=== PATIENT | female | born 1980 | race Caucasian/White ===

== ENCOUNTER 2019-10-02 13:08 | Outpatient (CLI) | payer MEDICARE, MEDICAID, SELFPAY ==
[2019-10-02 13:37] LABS: Blood Urea Nitrogen 6 mg/dL (7-17); Calcium 8.8 mg/dL (8.4-10.2); Carbon Dioxide 28 mmol/L (22-30); Chloride 101 mmol/L (98-107); Estimated Glomerular Filt Rate > 60; Glucose 130 mg/dL (65-105); Potassium 3.7 mmol/L (3.4-5.0); Sodium 137 mmol/L (137-145)
== END 2019-10-02 13:09 | disposition home or self-care (01) ==
PROVIDERS: Anesthesiology; PCP Family Medicine; Visit Provider Obstetrics & Gynecology
DX: E11.9 Type 2 diabetes mellitus without complications (principal); O02.1 Missed abortion
CPT/HCPCS: 36415; 80048; 86900; 86901

== ENCOUNTER 2019-10-05 00:47 | Day surgery (SDC) | payer MEDICARE, MEDICAID, SELFPAY ==
[2019-09-30 17:42] VITALS: BMI 37.1
[2019-10-05] VITALS (13 sets, daily range): BP systolic 100–142; BP diastolic 35–86; PULSE 58–100; RESP 10–20; TEMP 36.1–37.3; O2SAT 97–100
--- NOTE | ~2019-10-05 | US_ITS ---
US guidance surgery Clinical information: D&C procedure. TECHNIQUE: Ultrasound guidance used during D&C procedure performed by [Zana Lema MD]. FINDINGS: Correlate with procedure note. IMPRESSION: Ultrasound used during D&C procedure. Please refer to procedural report for details. Reviewed, dictated and finalized at location A. IMPRESSION: Ultrasound used during D&C procedure. Please refer to procedural re port for details.
--- NOTE | 2019-10-05 06:07 | ECG_ITS ---
Measurements Intervals [place] Rate: 70 P: 40 [place]: 148 QRS: 6 QRSD: 89 T: 28 QT: 387 QTc: 418 Interpretive Statements SINUS RHYTHM NORMAL ECG Electronically Signed On 10-05-2019 7:08:46 CDT by Steve Keith D.O.
--- NOTE | 2019-10-05 07:11 | WPDANESEPPF ---
Anes - Initial Pre Proc Eval Procedure: Operation Date: 10/05/19 07:30 Proposed Procedures p Suction Dilatation and Curettage - Zana Lema MD Date/Time: 10/05/19 07:11 Surgeon: Zana Lema MD Pre Op Diagnosis: missed AB Patient Data Age: 39 Gender: F Height: 5 ft 8 in Weight: 110.9 kg Allergies Allergy/AdvReac Type Severity Reaction Status Date / Time Penicillins Allergy Severe Swelling Verified 09/30/19 17:26 of Lip/Tongue/Throat COCONUT Allergy Severe THROAT Uncoded 09/30/19 17:26 SWELLING Home Medications Medication Instructions Recorded Confirmed Type doxycycline hyclate 100 mg PO DAILY 09/30/19 09/30/19 History duloxetine 60 mg PO DAILY 09/30/19 09/30/19 History fentanyl See Rx Instructions .ROUTE .COMPLEX 09/30/19 09/30/19 History glimepiride 2 mg PO DAILY 09/30/19 09/30/19 History hydrocodone-acetaminophen 1 tablet PO QID 09/30/19 09/30/19 History liraglutide [Victoza 2-Sam] 18 mg SUBCUT 09/30/19 History lisinopril 10 mg PO DAILY 09/30/19 09/30/19 History metformin 1,000 mg PO BID 09/30/19 09/30/19 History pregabalin [Lyrica] 100 mg PO TID 09/30/19 09/30/19 History simvastatin 10 mg PO DAILY 09/30/19 09/30/19 History sitagliptin [Januvia] 100 mg PO DAILY 09/30/19 09/30/19 History trazodone 2 mg PO HS 09/30/19 09/30/19 History Patient hx anesthesia problems: none Family hx anesthesia problems: none PMFSH Past Medical History Medical History (Updated 10/05/19 @ 07:12 by Kalyan Gallego MD) COPD (chronic obstructive pulmonary disease) Diabetes Hyperlipidemia Hypertension ANIBAL (obstructive sleep apnea) Family History Family History Father Diabetes mellitus Mother Diabetes mellitus Other Cerebrovascular accident Family history of allergic disorder Family history of cardiovascular disease Family history of kidney stones Family history of malignant neoplasm Hypertension Social History Social History Smoking status: Former smoker Alcohol intake: never Anes - Eval Final PreProcedure Day of Procedure 10/05/19 07:11 Patient weight: obese Heart: regular rate and rhythm Lungs: decreased breath sounds Airway: Mallampati scale class II Neurological: alert and oriented Last oral intake: >/= 8 hours ASA classification: III Emergent: no Anesthetic plan: proceed Anesthesia type and monitoring: general GIVS and standard monitoring Informed Consent: The patient's anesthetic plan and its attendant risks and benefits were discussed with the patient/family/POA. Questions were solicited and answers provided to the satisfaction of the patient/family/POA.
[2019-10-05 07:15] LABS: Glucose Point of Care 91 (65-105)
[2019-10-05] MEDS: LACTATED RINGERS 1,000 ML 30 ML IV CONT ×2 (07:15→08:50)
[2019-10-05] MEDS: IBUPROFEN IV 800 MG/200 ML 800 MG/200 ML BAG 400 MG IVPB (07:15)
--- NOTE | 2019-10-05 07:26 | WPDHPUPDATE1 ---
History and Physical Update Update Date/Time: 10/05/19 07:26 History and Physical has been reviewed, including an updated exam of the patient. There are NO changes in the patient's condition. Risks, benefits, and alternatives have been discussed and questions answered. Patient agrees to proceed with procedure.
[2019-10-05 07:29] LABS: Blood Urea Nitrogen 7 mg/dL (7-17); Calcium 9.1 mg/dL (8.4-10.2); Carbon Dioxide 29 mmol/L (22-30); Chloride 102 mmol/L (98-107); Estimated CRCL calculation 166 ml/min; Estimated Glomerular Filt Rate > 60; Glucose 102 mg/dL (65-105); Sodium 138 mmol/L (137-145)
[2019-10-05] MEDS: MISOPROSTOL 200 MCG TABLET 1000 MCG RECTAL (08:07)
[2019-10-05 08:58] LABS: Glucose Point of Care 89 (65-105)
--- NOTE | 2019-10-05 09:10 | P.OP_ITS ---
Procedure Note - Detailed Date of procedure: 10/05/19 Pre-op diagnosis: missed AB Post-op diagnosis: same Procedure performed: Suction D&C, Uterine Packing and hemorrhage management. Description of procedure: The patient was taken the operating room. She has prepped and draped in dorsal lithotomy position after induction of mac anesthesia. A speculum was placed in the vagina. The cervix was grasped with a tenaculum. The cervix was injected at 3 and 9:00 a.m. with 1% lidocaine. The cervix was dilated up to 10 mm using Gabriel dilators. An #9 curved plastic suction curette was then applied to the intrauterine cavity. All of the surf aces in the intrauterine cavity were curettage under VAC. A sharp medium-size curette was then used to curettage all the surfaces to confirmed the removal of all the products conception. When all surfaces were clean the curette was removed. The suction curette was then reapplied to remove all the debris. Heavy bleeding ensued. At 600cc of blood loss hemabate was requested and it was administered at about 700cc of blood loss. Alternating sharp and suction currette were applied repetitively. Cystotec was administered at around 900cc of blood loss. Through the entire process bleeding was steady and heavy. An attempt was made to place a balkri balloon. It did not fit. The uterus was then packed with a vaginal packing using a packing forceps. Bleeding resolved. Intraoperative US was performed. No fluid collections or packing seen outside the uterus. The procedure was terminated. The tenaculum was removed. The speculum was removed. The patient tolerated the procedure well. She was taken recovery room in stable condition. Anesthesia: MAC Surgeon: Zana Lema MD Estimated blood loss (mL): 1,500.00 Drains: No Packing: Yes Pathology: yes Complications: Other complications (Hemorrhage) Condition: stable Disposition: PACU Findings: Normal vulva vagina and cervix. The moderate amounts of products conception. 11 cm uterus.
[2019-10-05 09:14] LABS: Hematocrit 32.5 % (37.0-47.0); Hemoglobin 10.6 g/dL (12.0-15.0)
--- NOTE | 2019-10-05 09:48 | SUR.PHASEI ---
[address] [id number] SBAR FGAXED FLOOR NOTIFIED
[2019-10-05] MEDS: DEXTROSE 5%/0.45% SOD CHL 1,000 ML 125 ML IV CONT (11:07)
[2019-10-05] MEDS: DULOXETINE 60 MG CAPSULE.DR PO (11:08)
[2019-10-05] MEDS: GLIMEPIRIDE 2 MG TABLET PO (11:08)
[2019-10-05] MEDS: lisinopriL 10 MG TABLET PO (11:09)
[2019-10-05] MEDS: metFORMIN HCL 500 MG TABLET 1000 MG PO ×2 (11:09→18:18)
[2019-10-05] MEDS: SIMVASTATIN 10 MG TABLET PO (11:09)
[2019-10-05] MEDS: DOXYCYCLINE HYCLATE 100 MG TABLET PO (11:09)
[2019-10-05] MEDS: PREGABALIN 50 MG CAPSULE 100 MG PO ×3 (11:13→18:18)
[2019-10-05] MEDS: IBUPROFEN 600 MG TABLET PO (19:50)
[2019-10-05] MEDS: TRAZODONE HCL 50 MG TABLET 150 MG PO (20:56)
[2019-10-05] MEDS: FENTANYL 25 MCG/HR PATCH TRANSDERM (20:56)
[2019-10-05] MEDS: metroNIDAZOLE 250 MG TABLET 500 MG PO (21:38)
[2019-10-06] VITALS (13 sets, daily range): BP systolic 78–124; BP diastolic 44–60; PULSE 76–103; RESP 14–20; TEMP 36.3–37.5; O2SAT 98–100
[2019-10-06] MEDS: IBUPROFEN 600 MG TABLET PO (02:40)
[2019-10-06] MEDS: LACTATED RINGERS 500 ML 999 ML IV CONT ×2 (02:40→03:44)
[2019-10-06] MEDS: NALOXONE HCL 0.4 MG/ML VIAL 0.1 MG IV PUSH (03:45)
[2019-10-06 03:58] LABS: Hematocrit 23.8 % (37.0-47.0); Hemoglobin 7.8 g/dL (12.0-15.0); Mean Corpuscular HGB Conc 32.8 g/dl (32-36); Mean Corpuscular Volume 85.3 fl (80-100); Mean Platelet Volume 10.6 fl (7.4-10.4); Platelet Count Result 209 k/mm3 (150-375); Red Blood Count 2.79 M/mm3 (4.2-5.4); Red Cell Distribution Width 13.3 % (11.5-14.5); White Blood Count 15.1 K/mm3 (4.5-10.0)
[2019-10-06] MEDS: SODIUM CHLORIDE 0.9% IV 250 ML 30 ML IV CONT (04:26)
[2019-10-06] MEDS: FENTANYL 25 MCG/HR PATCH TRANSDERM (05:07)
[2019-10-06 07:30] LABS: Rapid Plasma Reagin Non-Reactive (NonReactive)
--- NOTE | 2019-10-06 08:08 | PM.GYNPNOP ---
SPORT PSYCHOLOGIST - A/P Assessment and plan (1) Intraoperative hemorrhage: Code(s): T81.89XA - Other complications of procedures, not elsewhere classified, initial encounter Status: Acute Assessment and Plan: The patient had some hypotension overnight. She states today that this is fairly common for her. Her pulse was normal. Her H/H was markedly low. She was given blood. She is tolerating it well. We removed packing for the uterus. We will observe and consider D/C after blood. Abx last night. (2) Missed : Code(s): O02.1 - Missed Status: Acute Postoperative Procedures: Procedures Operation Date: 10/05/19 07:30 Actual Procedures Side Surgeon p Suction Dilatation and Curettage with insertion of uterine packing Not Applicable Zana Lema MD Time Spent With Patient Time: Total time spent is greater than 50% in coordination of care (as documented) at patient's floor/unit and/or counseling patient: Time with patient: 15 - 25 minutes SPORT PSYCHOLOGIST- PN:Subj Post-Op Subjective Date/time seen: 10/06/19 08:08 Subjective: patient reports feeling better, patient has no complaints, patient desires discharge, pain is well controlled and patient is tolerating oral intake Exam Const: General: healthy appearing, comfortable and no acute distress Resp: Auscultation: clear to auscultation bilaterally, no rales, no rhonchi and no wheezes Cardio: Rate: regular rate Heart sounds: no click, no murmurs and no rubs GI: Inspection: non-distended Auscultation: normal bowel sounds : Other: Uterine packing removes without complication. The patient tolerated it well. Extrem: General: normal to inspection, no pedal edema and no calf tenderness SPORT PSYCHOLOGIST - PN: Obj Data Vital Signs Vital Signs: Vital Signs - 24 hr 10/05/19 08:50 10/05/19 09:05 10/05/19 09:20 Temperature 97 F L Pulse Rate 90 65 63 Respiratory Rate 16 20 12 Blood Pressure 142/86 H 130/35 L 116/71 Pulse Oximetry 100 100 100 10/05/19 09:35 10/05/19 09:50 10/05/19 10:05 Temperature Pulse Rate 66 66 72 Respiratory Rate 12 10 L 16 Blood Pressure 116/74 110/70 111/68 Pulse Oximetry 99 99 100 10/05/19 10:40 10/05/19 10:55 10/05/19 11:25 Temperature 97.3 F L 98.0 F 97.1 F L Pulse Rate 58 L 80 77 Respiratory Rate 16 16 14 Blood Pressure 111/66 107/65 125/68 Pulse Oximetry 97 100 99 10/05/19 12:25 10/05/19 14:00 10/05/19 20:04 Temperature 98.2 F 98.0 F 99.2 F Pulse Rate 92 97 100 Respiratory Rate 16 18 12 Blood Pressure 106/56 L 102/57 L 100/60 Pulse Oximetry 100 100 100 10/06/19 00:04 10/06/19 02:22 10/06/19 03:37 Temperature 98.8 F Pulse Rate 103 H 99 Respiratory Rate 16 Blood Pressure 90/50 L 84/50 L 78/46 L Pulse Oximetry 99 99 10/06/19 04:16 10/06/19 04:47 10/06/19 05:05 Temperature 99.3 F 98.2 F Pulse Rate 86 86 Respiratory Rate 20 18 Blood Pressure 88/58 L 94/45 L 87/46 L Pulse Oximetry 100 100 10/06/19 06:05 10/06/19 06:15 10/06/19 06:35 Temperature 99.5 F 99.4 F 97.9 F Pulse Rate 77 76 90 Respiratory Rate 16 18 20 Blood Pressure 92/48 L 96/44 L 89/50 L Pulse Oximetry 99 98 99 10/06/19 06:50 10/06/19 07:50 Temperature 97.3 F L 98.0 F Pulse Rate 78 85 Respiratory Rate 16 16 Blood Pressure 92/49 L 103/55 L Pulse Oximetry 100 Intake/Output Intake/Output: Intake & Output 10/03/19 10/04/19 10/05/19 10/06/19 23:59 23:59 23:59 23:59 Intake Total 2714 1900 Balance 2714 1900 Meds/Results Medications: Active Medications Generic Name Dose Route Start Last Admin Trade Name Freq PRN Reason Stop Dose Admin Hydrocodone Bitart/Acetaminophen 1 tab 10/05/19 10:19 [place] 5-325 Mg PO Q3H PRN Pain Rated 5 or Less Hydrocodone Bitart/Acetaminophen 1 tab 10/05/19 10:19 10/05/19 18:21 [place] 10-325 Mg PO 1 tab Q3H PRN Administration Pain Rated 6 or Greater Doxycycline Hyclate 100 mg 10/05/19 10:19 10/05/19 11:09 Vibramycin Tab PO 10/08
[2019-10-06] MEDS: DULOXETINE 60 MG CAPSULE.DR PO (08:33)
[2019-10-06] MEDS: SIMVASTATIN 10 MG TABLET PO (08:33)
[2019-10-06] MEDS: DOXYCYCLINE HYCLATE 100 MG TABLET PO (08:33)
[2019-10-06] MEDS: metroNIDAZOLE 250 MG TABLET 500 MG PO (08:33)
[2019-10-06] MEDS: metFORMIN HCL 500 MG TABLET 1000 MG PO (08:37)
[2019-10-06] MEDS: GLIMEPIRIDE 2 MG TABLET PO (08:37)
[2019-10-06 08:40] LABS: Glucose Point of Care 165 (65-105)
[2019-10-06 09:57] LABS: Hematocrit 27.8 % (37.0-47.0); Hemoglobin 9.1 g/dL (12.0-15.0)
== END 2019-10-06 11:25 | disposition home or self-care (01) ==
LOC: ANHSURGERY 07:24 → ANH2MED 10:23
PROVIDERS: PCP Family Medicine; Visit Provider Obstetrics & Gynecology
PROC: (CPT 59820; principal; 2019-10-05 07:30)
DX: O02.1 Missed abortion (principal); N99.61 Intraoperative hemorrhage and hematoma of a genitourinary system organ or structure complicating a genitourinary system procedure; I10 Essential (primary) hypertension; E78.5 Hyperlipidemia, unspecified; E11.9 Type 2 diabetes mellitus without complications; G47.33 Obstructive sleep apnea (adult) (pediatric); J44.9 Chronic obstructive pulmonary disease, unspecified; Z79.84 Long term (current) use of oral hypoglycemic drugs; Z87.891 Personal history of nicotine dependence; E66.9 Obesity, unspecified; Z68.36 Body mass index [BMI] 36.0-36.9, adult
CPT/HCPCS: 59820; 36415; 36430; 76998; 80048; 85014; 85018; 85027; 85461; 86592; 86923; 88305; 93005; A9270; J0330; J1741; J2210; J2250; J2310; J2405; J2590; J2704; J3010; J7050; J7120; P9016

== ENCOUNTER 2023-03-24 01:15 | Day surgery (SDC) | payer MEDICARE, MEDICAID, SELFPAY ==
[2023-03-24 07:03] VITALS: BP 118/69; PULSE 71; RESP 18; TEMP 36.1; O2SAT 100
[2023-03-24] MEDS: LACTATED RINGERS 1,000 ML 150 ML IV CONT (07:14)
[2023-03-24 07:16] LABS: Glucose Point of Care 89 mg/dl (65-105)
--- NOTE | 2023-03-24 07:52 | PM.HPGS ---
History of Present Illness History of Present Illness Consent: Risks, benefits, and alternatives have been discussed and questions answered. Patient agrees to proceed with procedure. Chief complaint: Hx colon polyps, weight loss,diarrhea,constipation Narrative: Shilpa Taylor is a 43 year old female here for screening colonoscopy, had hyperplastic sigmoid polyp in 2018 Review of Systems Constitutional: Constitutional: Denies headache(s) and Denies weakness Eyes: Eyes: Denies blurry vision ENT: Reports Normal hearing present, Denies headache(s) and Denies neck pain Cardiovascular: Cardiovascular: Denies chest pain and Denies dyspnea Respiratory: Respiratory: Denies dyspnea Gastrointestinal: Gastrointestinal: Reports no additional gastrointestinal complaints Genitourinary: Genitourinary: Denies dysuria Musculoskeletal: Musculoskeletal: Denies neck pain Integumentary/Breasts: Skin/Breast: Denies dry skin Neurologic: Reports Normal hearing present, Denies headache(s) and Denies weakness Psychiatric: Psychiatric: Denies anxiety Endocrine: Endocrine: Denies change in body appearance Hematologic/Lymphatic: Hematologic/Lymphatic: Denies easy bleeding Allergic/Immunologic: Allergic/Immunologic: Denies urticaria PMF Past Medical History Medical History (Updated 03/24/23 @ 07:52 by Derick Jay MD) Colon cancer screening COPD (chronic obstructive pulmonary disease) Diabetes Hyperlipidemia Hypertension ANIBAL (obstructive sleep apnea) Family History Family History Father Diabetes mellitus Mother Diabetes mellitus Other Cerebrovascular accident Family history of allergic disorder Family history of cardiovascular disease Family history of kidney stones Family history of malignant neoplasm Hypertension Social History Social History Smoking packs per day: 1 Smoking cigarettes per day: 20.0 Years smoked: 15 Smoking pack-years: 15.00 Smoking status: Former smoker Tobacco type: cigarettes Alcohol intake: never Substance use: former Substance use type: marijuana Other substance usage details: 2-3 times per day Last use: 2019 Living arrangements: with family Gender identity (if verbalized by the patient): Female Spiritual care concerns: No Agree to blood products: Yes Meds Home Medications and Allergies Home Medications Medication Instructions Recorded Confirmed Type duloxetine 60 mg capsule,delayed 60 mg PO DAILY 09/30/19 03/17/23 History release fentanyl 25 mcg/hr transdermal See Rx Instructions .Route .COMPLEX 09/30/19 03/17/23 History patch hydrocodone 10 mg-acetaminophen 1 tablet PO QID 09/30/19 03/24/23 History 325 mg tablet pregabalin 100 mg capsule (Lyrica) 100 mg PO TID 09/30/19 03/17/23 History trazodone 150 mg tablet 150 mg PO HS 09/30/19 03/17/23 History dulaglutide 3 mg/0.5 mL 3 mg subcut WEEKLY 03/17/23 03/17/23 History subcutaneous pen injector (Trulicity) Allergies Allergy/AdvReac Type Severity Reaction Status Date / Time Penicillins Allergy Severe Swelling Verified 03/24/23 06:57 of Lip/Tongue/Throat COCONUT Allergy Severe THROAT Uncoded 03/24/23 06:57 SWELLING Vital Signs Vital Signs - 24 hr 03/24/23 07:03 Temperature 97 F L Pulse Rate 71 Respiratory Rate 18 Blood Pressure 118/69 Pulse Oximetry 100 Oxygen Delivery Room Air Exam Const: General: comfortable and no acute distress HENMT: Face/Nose/Sinus: Normal nares present Eyes: General: appearance normal, both eyes and all related structures Neck: Neck: no JVD Resp: Auscultation: clear to auscultation bilaterally Cardio: Rate: regular rate Rhythm: regular rhythm GI: Inspection: non-distended GI Palp: Yes Soft to palpation Skin: General skin exam: normal color Neuro: General: gait no
--- NOTE | 2023-03-24 07:56 | WPDANESEPPF ---
Anes - Initial Pre Proc Eval Procedure: Operation Date: 03/24/23 08:00 Proposed Procedures p Colonoscopy - Derick Jay MD Date/Time: 03/24/23 07:56 Surgeon: Derick Jay MD Pre Op Diagnosis: Hx colon polyps, weight loss,diarrhea,constipation Patient Data Age: 43 Gender: F Height: Weight: 78.7 kg Last Vital Signs Temp 97 F L 03/24/23 07:03 Pulse 71 03/24/23 07:03 Resp 18 03/24/23 07:03 BP 118/69 03/24/23 07:03 Pulse Ox 100 03/24/23 07:03 O2 Del Method Room Air 03/24/23 07:03 Allergies Allergy/AdvReac Type Severity Reaction Status Date / Time Penicillins Allergy Severe Swelling Verified 03/24/23 06:57 of Lip/Tongue/Throat COCONUT Allergy Severe THROAT Uncoded 03/24/23 06:57 SWELLING Home Medications Medication Instructions Recorded Confirmed Type duloxetine 60 mg capsule,delayed 60 mg PO DAILY 09/30/19 03/17/23 History release fentanyl 25 mcg/hr transdermal See Rx Instructions .Route .COMPLEX 09/30/19 03/17/23 History patch hydrocodone 10 mg-acetaminophen 1 tablet PO QID 09/30/19 03/24/23 History 325 mg tablet pregabalin 100 mg capsule (Lyrica) 100 mg PO TID 09/30/19 03/17/23 History trazodone 150 mg tablet 150 mg PO HS 09/30/19 03/17/23 History dulaglutide 3 mg/0.5 mL 3 mg subcut WEEKLY 03/17/23 03/17/23 History subcutaneous pen injector (Trulicity) Laboratory Tests 03/24/23 07:12 POC Capillary Glucose 89 mg/dl (65-105) Patient hx anesthesia problems: none Family hx anesthesia problems: none Results Review: All pre-operative results and documents have been reviewed as part of the pre-operative evaluation. [facility] Past Medical History Medical History (Updated 03/24/23 @ 07:52 by Derick Jay MD) Colon cancer screening COPD (chronic obstructive pulmonary disease) Diabetes Hyperlipidemia Hypertension ANIBAL (obstructive sleep apnea) Family History Family History Father Diabetes mellitus Mother Diabetes mellitus Other Cerebrovascular accident Family history of allergic disorder Family history of cardiovascular disease Family history of kidney stones Family history of malignant neoplasm Hypertension Social History Social History Smoking packs per day: 1 Smoking cigarettes per day: 20.0 Years smoked: 15 Smoking pack-years: 15.00 Smoking status: Former smoker Tobacco type: cigarettes Alcohol intake: never Substance use: former Substance use type: marijuana Other substance usage details: 2-3 times per day Last use: 2019 Living arrangements: with family Gender identity (if verbalized by the patient): Female Spiritual care concerns: No Agree to blood products: Yes Anes - Eval Final PreProcedure Day of Procedure 03/24/23 07:56 Results Review: All pre-operative results and documents have been reviewed as part of the pre-operative evaluation. Informed Consent: The patient's anesthetic plan and its attendant risks and benefits were discussed with the patient/family/POA. Questions were solicited and answers provided to the satisfaction of the patient/family/POA.
[2023-03-24 08:18] VITALS: BP 111/65; PULSE 75; RESP 21; O2SAT 100
[2023-03-24 08:28] VITALS: BP 114/59; PULSE 64; RESP 13; O2SAT 100
[2023-03-24 08:35] VITALS: BP 116/62; PULSE 64; RESP 16; O2SAT 100
== END 2023-03-24 08:40 | disposition home or self-care (01) ==
PROVIDERS: PCP Emergency Medicine; Visit Provider Internal Medicine Gastroenterology
PROC: 0DJD8ZZ Inspection of Lower Intestinal Tract, Via Natural or Artificial Opening Endoscopic (ICD-10-PCS; CPT 45378; principal; 2023-03-24 08:00)
DX: Z12.11 Encounter for screening for malignant neoplasm of colon (principal); D12.2 Benign neoplasm of ascending colon; K64.8 Other hemorrhoids; R63.4 Abnormal weight loss; R19.7 Diarrhea, unspecified; K59.00 Constipation, unspecified; J44.9 Chronic obstructive pulmonary disease, unspecified; E11.9 Type 2 diabetes mellitus without complications; E78.5 Hyperlipidemia, unspecified; I10 Essential (primary) hypertension; G47.33 Obstructive sleep apnea (adult) (pediatric); F12.90 Cannabis use, unspecified, uncomplicated; Z87.891 Personal history of nicotine dependence; Z79.891 Long term (current) use of opiate analgesic; Z79.85 Long-term (current) use of injectable non-insulin antidiabetic drugs
CPT/HCPCS: 45385; 82948; 88305; J2704; J7120